=== PATIENT | male | born 1940 | race Caucasian/White ===

== ENCOUNTER 2017-11-17 08:25 | Inpatient (IN) | payer OTHER, BC ==
[~2017-11-17] VITALS: Ht 182.9 cm; Wt 102.7 kg
[2017-11-17 09:47] LABS: AMPHETAMINE NEGATIVE (500 ng/mL); BARBITURATES NEGATIVE (200 ng/mL); BENZODIAZEPINES NEGATIVE (150 ng/mL); COCAINE NEGATIVE (150 ng/mL); METHADONE NEGATIVE (200 ng/mL); METHAMPHETAMINE NEGATIVE (500 ng/mL); OPIATES (MORPHINE) NEGATIVE (100 ng/mL); PHENCYCLIDINE NEGATIVE (25 ng/mL); THC CANNABINOIDS NEGATIVE (50 ng/mL); TRICYCLIC ANTIDEPRESSANTS NEGATIVE (300 ng/mL)
[2017-11-17 09:48] LABS: BUPRENORPHINE NEGATIVE (10 ng/mL); OXYCODONE PRESUMPTIVE POSITIVE (100 ng/mL); PROPOXYPHENE NEGATIVE (300 ng/mL)
[2017-11-17 09:49] LABS: HEMATOCRIT 48.2 % (38.0-50.0); HEMOGLOBIN 17.3 G/DL (12.5-16.6); MCHC 35.9 G/DL (30.0-36.0); MCV 83.5 FL (86-99); PLATELET COUNT 287 K/uL (156-360); RBC DIS.WIDTH-CV 12.2 % (11.8-14.6); RBC DIS.WIDTH-SD 36.9 % (39-53); RED BLOOD COUNT 5.77 M/uL (4.00-5.50); WHITE BLOOD COUNT 11.3 K/uL (4.1-10.2)
[2017-11-17 10:02] LABS: ALBUMIN 4.9 g/dL (3.2-4.8); CHLORIDE 100 mEq/L (99-109); POTASSIUM 3.3 mEq/L (3.7-5.4); SODIUM 140 mEq/L (136-147)
[2017-11-17 10:05] LABS: GLUCOSE 118 mg/dL (70-99); TOTAL PROTEIN 8.3 g/dL (6.4-8.3)
[2017-11-17 10:07] LABS: TOTAL BILIRUBIN 0.8 mg/dL (0.0-1.0)
[2017-11-17 10:08] LABS: ALKALINE PHOSPHATASE 92 IU/L (3-129); SERUM ETHYL ALCOHOL 166 mg/dL
[2017-11-17 10:09] LABS: CREATININE 0.9 mg/dL (0.6-1.3); GFR ESTIMATE (CALCULATED) > 59 mL/min/ (58.99-99999)
[2017-11-17 10:10] LABS: AST (GOT) 68 IU/L (2-34); UREA NITROGEN (BUN) 11 mg/dL (9-23)
[2017-11-17 10:11] LABS: ALT (GPT) 107 IU/L (3-49)
[2017-11-17 10:12] LABS: LIPASE 2 U/L (1.0-51.0)
[2017-11-17 18:25] VITALS: BP 107/69
[2017-11-18 07:51] VITALS: BP 134/70
[2017-11-18 15:34] VITALS: BP 119/88
[2017-11-19 07:52] VITALS: BP 139/77
[2017-11-19 09:41] LABS: HEMATOCRIT 42.3 % (38.0-50.0); HEMOGLOBIN 15.5 G/DL (12.5-16.6); MCH 30.6 PG (29.0-34.0); MCHC 36.6 G/DL (30.0-36.0); MCV 83.6 FL (86-99); PLATELET COUNT 233 K/uL (156-360); RBC DIS.WIDTH-SD 36.3 % (39-53); RED BLOOD COUNT 5.06 M/uL (4.00-5.50); WHITE BLOOD COUNT 10.1 K/uL (4.1-10.2)
[2017-11-19 09:54] LABS: ALBUMIN 4.4 g/dL (3.2-4.8)
[2017-11-19 09:55] LABS: CHLORIDE 97 mEq/L (99-109); POTASSIUM 3.4 mEq/L (3.7-5.4); SODIUM 136 mEq/L (136-147)
[2017-11-19 09:57] LABS: GLUCOSE 151 mg/dL (70-99); TOTAL PROTEIN 7.2 g/dL (6.4-8.3)
[2017-11-19 10:00] LABS: ALKALINE PHOSPHATASE 82 IU/L (3-129)
[2017-11-19 10:01] LABS: GFR ESTIMATE (CALCULATED) > 59 mL/min/ (58.99-99999); TOTAL BILIRUBIN 1.2 mg/dL (0.0-1.0)
[2017-11-19 10:02] LABS: AST (GOT) 39 IU/L (2-34); UREA NITROGEN (BUN) 21 mg/dL (9-23)
[2017-11-19 10:03] LABS: ALT (GPT) 70 IU/L (3-49)
[2017-11-19 10:07] LABS: TROP-I INTERPRETATION NEGATIVE; TROPONIN-I < 0.01 ng/mL (0.0-0.30)
[2017-11-19 14:27] LABS: TROP-I INTERPRETATION NEGATIVE; TROPONIN-I < 0.01 ng/mL (0.0-0.30)
[2017-11-20] MEDS ORDERED: NICOTINE PATCH1 EAC2 TD (14:51)
[2017-11-20] MEDS ORDERED: THIAMINE HCL100 MG PO (14:51)
[2017-11-20] MEDS ORDERED: FOLIC ACID1 MG PO (14:52)
== END 2017-11-19 16:28 | DRG 897 ==
LOC: EME 08:25 → 1WEST 16:10 → EDOF 16:10 → ENRESERV 17:42 → 1WEST 18:08 → CANRESERV 11-19 13:25 → ENRESERV 11-19 13:25 → 1WEST 11-19 16:28
PROVIDERS: Internal Medicine; Physician Assistant
PROC: HZ2ZZZZ Detoxification Services for Substance Abuse Treatment (ICD-10-PCS; principal; 2017-11-17)
DX: F11.23 Opioid dependence with withdrawal (principal); F10.129 Alcohol abuse with intoxication, unspecified; Y90.6 Blood alcohol level of 120-199 mg/100 ml; R10.13 Epigastric pain; E87.6 Hypokalemia; G89.29 Other chronic pain; M54.9 Dorsalgia, unspecified; G89.3 Neoplasm related pain (acute) (chronic); C61 Malignant neoplasm of prostate; Z87.891 Personal history of nicotine dependence
CPT/HCPCS: 80053; 83690; 84484; 85027; 90839; 93005; 99281; 99283; G0480; J2550; Q0169; Q0177

== ENCOUNTER 2017-11-19 12:53 | Observation (INO) | payer OTHER, BC ==
[~2017-11-19] VITALS: Ht 175.3 cm; Wt 104.6 kg
[2017-11-19 16:00] VITALS: BP 176/89
[2017-11-19 18:58] VITALS: BP 140/78
[2017-11-19 21:37] LABS: TROP-I INTERPRETATION NEGATIVE; TROPONIN-I 0.02 ng/mL (0.0-0.30)
[2017-11-19 23:56] VITALS: BP 125/75
[2017-11-20 05:27] VITALS: BP 156/75
[2017-11-20 05:27] LABS: MCH 29.5 PG (29.0-34.0); MCV 84.2 FL (86-99); PLATELET COUNT 235 K/uL (156-360); RBC DIS.WIDTH-SD 36.4 % (39-53); RED BLOOD COUNT 4.75 M/uL (4.00-5.50)
[2017-11-20 05:43] LABS: ALBUMIN 3.9 G/DL (3.2-4.8); ALKALINE PHOSPHATASE 67 IU/L (3-129); ALT (GPT) 40 IU/L (3-49); AST (GOT) 23 IU/L (2-34); CHLORIDE 101 MEQ/L (99-109); CREATININE 0.8 MG/DL (0.6-1.3); GFR ESTIMATE (CALCULATED) > 59 mL/min/ (58.99-99999); GLUCOSE 121 mg/dL (70-99); POTASSIUM 3.5 MEQ/L (3.7-5.4); SODIUM 138 MEQ/L (136-147); TOTAL BILIRUBIN 1.3 MG/DL (0.0-1.0); TOTAL PROTEIN 6.3 G/DL (6.4-8.3); UREA NITROGEN (BUN) 15 mg/dL (9-23)
[2017-11-20 07:20] VITALS: BP 141/83
[2017-11-20 11:47] VITALS: BP 141/82
[2017-11-20 13:09] LABS: APPEARANCE CLEAR ((CLEAR)); BILIRUBIN NEGATIVE; BLOOD NEGATIVE; COLOR YELLOW ((YELLOW)); GLUCOSE (STRIP) NEGATIVE; KETONES NEGATIVE; LEUKOCYTES NEGATIVE; NITRITE NEGATIVE; PROTEIN (STRIP) NEGATIVE; SPECIFIC GRAVITY 1.012 (1.000-1.030); UCUL ADDED? NO; UROBILINOGEN 0.2 MG/DL (0.2-1.0)
[2017-11-20] MEDS ORDERED: THIAMINE HCL100 MG PO (14:51)
[2017-11-20] MEDS ORDERED: NICOTINE PATCH1 EAC2 TD (14:51)
[2017-11-20] MEDS ORDERED: FOLIC ACID1 MG PO (14:52)
== END 2017-11-20 16:46 ==
LOC: 4EAST 12:53 → ENRESERV 12:54 → CANRESERV 12:54 → ENRESERV 13:36 → 4EAST 16:34
PROVIDERS: Hospitalist; Internal Medicine
DX: R07.89 Other chest pain (principal); R10.13 Epigastric pain; F11.10 Opioid abuse, uncomplicated; Z85.46 Personal history of malignant neoplasm of prostate; Z87.891 Personal history of nicotine dependence; E87.6 Hypokalemia; R74.0 Nonspecific elevation of levels of transaminase and lactic acid dehydrogenase [LDH]; R91.8 Other nonspecific abnormal finding of lung field
CPT/HCPCS: 71046; 80053; 81003; 83735; 84484; 85027; 93005; C9113; G0378; J2405; J3480